=== PATIENT | female | born 1950 | race Caucasian/White ===

== ENCOUNTER 2022-03-02 11:55 | Outpatient (CLI) | payer MEDICARE, BC, SELFPAY ==
--- OUTSIDE RECORDS SUMMARY | 2022-03-02 07:31 | XMS_ITS | Clinical Summary ---
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 Pulse 58 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 Temperature - - Respiratory Rate - - Oxygen Saturation 95% 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 Inhaled Oxygen Concentration - - Weight - - Height - - Body Mass Index - - Plan of Treatment Health Maintenance Due Date Last Done Comments Tdap 1959 Depression screening for age 12+ 1960 BMI (ht and wt on same day) for age 1003/28/1966 18+ Hepatitis C screening for age 18-79 1966 Tetanus booster 1968 Colonoscopy through age 75 1993 Lipids for age 45-75 1993 Mammogram for age 45-75 1993 Zoster (shingles) series for age 50+ 1998 (1 of 2) DEXA/DXA scan for age 65+ 2013 Medicare Wellness for age 65+ 2013 Pneumococcal series for age 65+ (1 - 2013 PCV) COVID-19 vaccine series (4 - Booster 08/30/2021 05/02/2021, 08/04/2020, for Moderna series) 07/07/2020 Influenza for age 65+ 02/12/2022 Results Not on filefrom Last 3 Months Insurance Payer Benefit Plan / Subscriber ID Effective Dates Phone Addre ss Type Group [employer]UE [employer] [employer] [id number] 2016-Present [address] [address] [place], [place] [id number] Care Teams Wholesale Account Executive Relationship Specialty Start Date End Date Hailey Breen MD PCP - General Internal Medicine 04/13/18
[2022-03-02 10:18] LABS: Cholesterol* 181 mg/dL (90-199)
[2022-03-02 10:19] LABS: HDL Cholesterol* 50 mg/dL (>=50); LDL Cholesterol Calculated 105 mg/dL (<100); Triglycerides* 129 mg/dL (40-149)
[2022-03-05 10:16] LABS: Chloride* 104 mmol/L (96-114); Potassium* 4.4 mmol/L (3.6-5.1); Sodium* 139 mmol/L (135-149)
[2022-03-05 10:18] LABS: Creatinine* 0.7 mg/dL (0.5-1.5); Estimated Glomerular Filt Rate 91 ml/min
[2022-03-05 10:19] LABS: Blood Urea Nitrogen* 18 mg/dL (7-30); Calcium* 9.9 mg/dL (8.4-10.6); Carbon Dioxide* 29 mmol/L (20-32); Glucose* 104 mg/dL (60-115)
== END 2022-03-02 11:56 | disposition home or self-care (01) ==
PROVIDERS: PCP Internal Medicine; Visit Provider Internal Medicine
DX: E78.5 Hyperlipidemia, unspecified (principal); I10 Essential (primary) hypertension
CPT/HCPCS: 80048; 80061

== ENCOUNTER 2022-04-08 15:15 | Outpatient (RCR) | payer MEDICARE, BC, SELFPAY ==
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
== END 2022-06-10 16:51 | disposition home or self-care (01) ==
PROVIDERS: PCP Internal Medicine; Visit Provider Internal Medicine
DX: M25.562 Pain in left knee (principal); Z51.89 Encounter for other specified aftercare
CPT/HCPCS: 97110; 97140; 97161

== ENCOUNTER 2022-09-16 06:10 | Day surgery (SDC) | payer MEDICARE, BC, SELFPAY ==
--- NOTE | 2022-09-16 06:19 | SUR.PREOP ---
Patient provided home covid negative results to RN.
--- NOTE | 2022-09-16 06:20 | SUR.PREOP ---
The eye drops brought by the patient (Ketorolac and Prednisolone) are examined and I have determined they are labeled by the patient's pharmacy for this patient as prescribed by the surgeon. The bottles are intact, recently obtained and appear to be correct.
[2022-09-16] MEDS: TETRACAINE 0.5% OPHTH 1 DROP EYE-LEFT ×2 (06:40→06:50)
[2022-09-16] MEDS: KETOROLAC OPHTH 0.5% 1 DROP EYE-LEFT ×2 (06:46→06:56)
[2022-09-16 06:48] VITALS: BMI 24.7
[2022-09-16] MEDS: SODIUM CHLORIDE 0.9 % (FLUSH) 10 ML SYRINGE IVF (07:00)
[2022-09-16 07:05] VITALS: BP 158/70; PULSE 54; RESP 16; TEMP 36.9; O2SAT 98
[2022-09-16] MEDS: TETRACAINE 0.5% OPHTH 2 DROP EYE-LEFT (07:12)
[2022-09-16] MEDS: BALANCED SALT IRRIG SOLN 15 ML EYE-LEFT (07:18)
--- NOTE | 2022-09-16 07:20 | W.ANESCHARGE ---
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
[2022-09-16 07:43] VITALS: BP 144/77; PULSE 55; RESP 16; TEMP 36.3; O2SAT 95
--- NOTE | 2022-09-16 09:30 | P.OPTPRC_ITS ---
Procedure Note Date of procedure: 09/16/22 Will [facility] bill your pro fee for this procedure?: Yes Procedure Description: SURGEON: Diane Hylton MD PREOPERATIVE DIAGNOSIS: Nuclear sclerotic cataract, left eye. POSTOPERATIVE DIAGNOSIS: Nuclear sclerotic cataract, left eye. NAME OF OPERATION: Phacoemulsification of cataract with posterior chamber intraocular lens implantation in the left eye. ANESTHESIA: Topical. ESTIMATED BLOOD LOSS: Less than 2 cc. COMPLICATIONS: None. PATHOLOGY SPECIMEN: None. INDICATIONS: See consult note for details. The risks, benefits and alternatives of the procedure were explained to the patient, who elected to proceed and sign ed informed consent to do so. PROCEDURE: The patient was brought to the pre-holding area where the left eye was identified as the operative eye. I placed my initials above this eye. The patient received eye drops consisting of 0.5% tetracaine, 1% tropicamide, 10% phenylephrine, and 0.5% ketorolac. The patient was then brought to the operating room where the left eye was again identified as the operative eye. The eye was prepped with Betadine and draped in the usual sterile ophthalmic fashion. A #15 super-sharp blade was used to create a paracentesis site. 1% non-preserved intracameral lidocaine was injected into the anterior chamber. Endocoat was injected into the anterior chamber. A 2.4 mm keratome was used to create a three-plane self-sealing incision 1 mm anterior to the temporal limbus. A cystotome was used to create an anterior capsular leaflet. The Utrata forceps were used to extend this to form a continuous curvilinear capsulorrhexis. Hydrodissection was performed. The cataract was removed with phacoemulsification using the eivamz-wyg-pmhzogc technique. The irrigation and aspiration tip was used to remove the remaining cortex. Healon was injected into the capsular bag. An SABINE ZCB00 intraocular lens of 22.0 diopters was injected into the capsular bag. The irrigation and aspiration tip was used to remove the remaining viscoelastic. Balanced salt solution on a cannula was used to hydrate the wound, and the wound was found to be watertight. The pupil was noted to be round. DISPOSITION: The patient was taken to the recovery room and discharged to home in stable condition. The patient was instructed to call me or go to the emergency department with any sudden change, including dramatic loss of vision, severe pain in the eye or eyebrow region, nausea, or vomiting. The patient will follow up in the clinic tomorrow morning.
== END 2022-09-16 08:19 | disposition home or self-care (01) ==
PROVIDERS: PCP Internal Medicine; Visit Provider Ophthalmology
PROC: (CPT 66984; principal; 2022-09-16 06:15)
DX: H25.12 Age-related nuclear cataract, left eye (principal)
CPT/HCPCS: 66984; 00142; 99100; A9270; J2250; J3010; V2632

== ENCOUNTER 2022-09-30 06:04 | Day surgery (SDC) | payer MEDICARE, BC, SELFPAY ==
[2022-09-30] MEDS: TETRACAINE 0.5% OPHTH 1 DROP EYE-RIGHT ×2 (06:15→06:20)
[2022-09-30] MEDS: KETOROLAC OPHTH 0.5% 1 DROP EYE-RIGHT ×2 (06:15→06:20)
[2022-09-30 06:17] VITALS: BMI 24.7
[2022-09-30 06:27] VITALS: BP 138/64; PULSE 49; RESP 16; TEMP 36.3; O2SAT 98
[2022-09-30] MEDS: SODIUM CHLORIDE 0.9 % (FLUSH) 10 ML SYRINGE IVF (06:30)
--- NOTE | 2022-09-30 06:43 | SUR.PREOP ---
HOME COVID TEST NEGATIVE
[2022-09-30] MEDS: TETRACAINE 0.5% OPHTH 2 DROP EYE-RIGHT (07:15)
[2022-09-30] MEDS: BALANCED SALT IRRIG SOLN 15 ML EYE-RIGHT (07:20)
--- NOTE | 2022-09-30 07:29 | W.ANESCHARGE ---
Anesthesia Charges Start Date/Time Anesthesia Start Date: 09/30/22 Anesthesia Start Time: 07:14 Stop Date/Time Anesthesia Stop Date: 09/30/22 Anesthesia Stop Time: 07:47 Summary Extremes of Age - Over 70 or under 1: MDA
--- NOTE | 2022-09-30 07:35 | W.ANESCHARGE ---
Anesthesia Charges Start Date/Time Anesthesia Start Date: 09/30/22 Anesthesia Start Time: 07:14 Stop Date/Time Anesthesia Stop Date: 09/30/22 Anesthesia Stop Time: 07:47
[2022-09-30 07:52] VITALS: BP 142/61; PULSE 53; RESP 18; TEMP 36.6; O2SAT 98
--- NOTE | 2022-09-30 09:30 | P.OPTPRC_ITS ---
Procedure Note Date of procedure: 09/30/22 Will [facility] bill your pro fee for this procedure?: Yes Procedure Description: SURGEON: Diane Hylton MD PREOPERATIVE DIAGNOSIS: Nuclear sclerotic cataract, right eye. POSTOPERATIVE DIAGNOSIS: Nuclear sclerotic cataract, right eye. NAME OF OPERATION: Phacoemulsification of cataract with posterior chamber intraocular lens implantation in the right eye. ANESTHESIA: Topical. ESTIMATED BLOOD LOSS: Less than 2 cc. COMPLICATIONS: None. PATHOLOGY SPECIMEN: None. INDICATIONS: See consult note for details. The risks, benefits and alternatives of the procedure were explained to the patient, who elected to proceed and s igned informed consent to do so. PROCEDURE: The patient was brought to the pre-holding area where the right eye was identified as the operative eye. I placed my initials above this eye. The patient received eye drops consisting of 0.5% tetracaine, 1% tropicamide, 10% phenylephrine, and 0.5% ketorolac. The patient was then brought to the operating room where the right eye was again identified as the operative eye. The eye was prepped with Betadine and draped in the usual sterile ophthalmic fashion. A #15 super-sharp blade was used to create a paracentesis site. 1% non-preserved intracameral lidocaine was injected into the anterior chamber. Endocoat was injected into the anterior chamber. A 2.4 mm keratome was used to create a three-plane self-sealing incision 1 mm anterior to the temporal limbus. A cystotome was used to create an anterior capsular leaflet. The Utrata forceps were used to extend this to form a continuous curvilinear capsulorrhexis. Hydrodissection was performed. The cataract was removed with phacoemulsification using the txsxum-uhm-njsenvo technique. The irrigation and aspiration tip was used to remove the remaining cortex. Healon was injected into the capsular bag. An SABINE ZCB00 intraocular lens of 22.5 diopters was injected into the capsular bag. The irrigation and aspiration tip was used to remove the remaining viscoelastic. Balanced salt solution on a cannula was used to hydrate the wound, and the wound was found to be watertight. The pupil was noted to be round. A small 1 mm corneal abrasion was noted anterior to the paracentesis site at the beginning of the surgery. Therefore, Polysporin ophthalmic ointment was applied. DISPOSITION: The patient was taken to the recovery room and discharged to home in stable condition. The patient was informed of the corneal abrasion and instructed to use the ophthalmic ointment 3 more times today. The patient was instructed to call me or go to the emergency department with any sudden change, including dramatic loss of vision, severe pain in the eye or eyebrow region, nausea, or vomiting. The patient will follow up in the clinic tomorrow morning.
== END 2022-09-30 08:08 | disposition home or self-care (01) ==
PROVIDERS: PCP Internal Medicine; Visit Provider Ophthalmology
PROC: (CPT 66984; principal; 2022-09-30 06:15)
DX: H25.11 Age-related nuclear cataract, right eye (principal)
CPT/HCPCS: 66984; 00142; 99100; A9270; J2250; J3010; V2632

== ENCOUNTER 2023-04-29 07:48 | Outpatient (CLI) | payer MEDICARE, BC, SELFPAY | END 2023-04-29 07:49 | disposition home or self-care (01) | LOC: NFLDREF 04-30 11:24 | PROVIDERS: PCP Internal Medicine; Referring Provider Internal Medicine; Visit Provider Internal Medicine | DX: I10 Essential (primary) hypertension (principal); E78.5 Hyperlipidemia, unspecified | CPT/HCPCS: 80048; 80061 ==

== ENCOUNTER 2023-07-26 08:15 | Outpatient (RCR) | payer MEDICARE, BC, SELFPAY ==
--- NOTE | 2023-05-26 08:55 | PT.OPEX ---
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 SHE STATES THAT THE GREATEST CHALLENGE SHE HAS IS WHEN SHE FLIPS THE SHEET TO MAKE THE BED OR WHEN REACHING. SHE HAS TRIED IBUPROFEN AND TYLENOL WITH NO SIGNIFICANT CHANGE IN HER SYMPTOMS. SHE IS HOPING TO RETURN TO HER ACTIVE LIFE W/O SHOULDER PAIN. Date of Last Physician Visit 05/04/23 Current Work Status Retired Occupation RETIRED SOCIAL WORK Preferred Name [employer] Precautions Treatment Precautions/Contraindications DEMENTIA (MILD) Therapy Limitations/Systems Review Cognition Objective Other/Pertinent Objective CERVICAL ROM: WFL SHOULDER AROM Flexion: R 168 L 176 Abduction: R 162 L 152 Internal Rotation: T4 BILATERALLY External Rotation: R 88 L86 NECK/SHOULDER MMT: Shoulder shrug: R 5/5 L5 /5 Shoulder flexion: R 4-/5 L 4-/ 5 (PAIN LIMITED) Shoulder abduction: R 4-/5 L 4 -/5 (PAIN LIMITED) Shoulder External Rotation: R 4/5 L 4/5 Shoulder Internal Rotation: R 4/5 L 4/5 Elbow flexion: R 4/5 L 4/5 Elbow extension R 4/5 L 4/5 SPECIAL TEST Shoulder impingement- Ernandez Bonifacio Test: (+) Neer Test: (-) Malachi Test(subacromial): (-) Painful arc 60-120 scaption: ( +) Rotator cuff tendonitis Speeds test(biceps): (+) Yergasons test(biceps-arm at side elbow flexed) :(+) Empty can(Supra): (+) Lift off test (subscap): (+) Labral Tear/Instability /AC joint Paxiono sign(AC): (-) Anterior Apprehension: (-) Jobes relocation test: (-) Obriens test - (+) JOINT MOBILITY/PALPATION: HYPERMOBILITY NOTED TX: ULTRASOUND R/L PROXIMAL SHOULDER: 8 MIN 1MHz 1.6W/CM@ CONTINUOUS EA SHOULDER FLEX STRETCH AGAINST WALL 3 X 15 SEC SHOULDER PEC/ANTERIOR SHOULDER STRETCH STDG SCAP SQUEEZE X 15 HOLD 3 SEC STDG TB (RED) B S'ER X X15 STDG TB (RED) ROW X 15 HOLD 3 SEC Assessment Assessment/Impression PATIENT IS A [address] BUSTOS FOR BILATERAL BICEPS TENDINOSIS TO EVAL AND TX; PMHX INCLUDES BUT NOT LIMITED HTN, HLD, AND MILD DEMENTIA/MEMORY CHALLENGES. PATIENT LIVES WITH HER SPOUSE WHO ASSISTS HER WITH MEMORY CHALLENGES NEEDED. SHE IS INDEPENDENT WITH ADL'S, IADL'S AND CURRENTLY DRIVES TO GROCERY STORE, FAMILY AND OTHER ACTIVITIES SUCCESSFULLY. SHE REPORTS THAT HER DEMENTIA IS MORE EXCESSIVE FORGETFULNESS AND WORKS BETTER VISUALLY AND WITH HANDOUTS. SHE DEMONSTRATES BILATERAL MODERATE POINT TENDERNESS ABOUT THE BICIPITAL GROOVE BILATERALLY AND PEC MAJOR TENDON WITH A POSITIVE IMPINGEMENT AND PAINFUL ARC DESPITE HAVING FULL AROM. SHE DEMONSTRATES BILATERAL JOINT LAXITY/HYPERMOBILITY. SHE WOULD BENEFIT FROM THE USE OF ULTRASOUND, DTM AND IADTM FOR TREAT THE TENDINOSIS ALONG WITH RTC/SCAPULAR STRENGTHENING AND STABILIZATION TO RETURN TO HER PLOF. SHE IS PROVIDED A WRITTEN HEP ALONG WITH HER FIRST OF ULTRASOUND TREATMENT (REASSESS AT 4 TREATMENTS FOR EFFICACY). Primary Functional Limitations REACHING CARRYING LIFTING Plan of Care Rehabilitation Potential Good Physical Therapy Goals IN 6-10 VISITS: 1. DECREASE SHOULDER PAIN TO < /2-3/10 WITH DAILY ACTIVITIES AND WITH THE PROGRESSION OF HER HEP OVER THE NEXT 4 WEEKS. 2. DEMONSTRATE PAIN FREE AROM OVER THE NEXT 4-6 WEEKS DURING DAILY ACTIVITIES WITHOUT FLARE UPS OF SYMPTOMS. 3. PATIENT WILL VERBALIZED UNDERSTANDING OF POSTURING AND BODY MECHANICS IT RELATES TO DECREASING STRESS, IMPROVED SHOULDER MECHANICS, AND DECREASED SYMPTOMS. 4.PATIENT WILL DEMONSTRATES IMPROVED STRENGTH TO FACILITATE RETURN TO DAILY ACTIVITIES WITH LESS SYMPTOMS AND DECREASED OPPORTUNITIES FOR FLARE UP OF PAIN 5. PATIENT WILL BE INDEPENDENT WITH HER HEP WITHIN THE NEXT 6-8 WEEKS FOR PROGRESSION TWD ABOVE MENTION GOALS, CONTINUED MGMT OF SYMPTOMS, AND ONGOING SELF IMPROVEMENTS IN POSTURING/STRENGTH/ STABILIZATION. Coordination/Communication With Referral Source Treatment Plan/Direct Interventions Ice/Cold/Vasopneumatic,Manual Therapy,Neuromuscular Re-ed, Therapeutic Activities, Therapeutic Exercises Frequency/Duration 1-2X 6-8WKS Patient Will Be Discharged From Therapy Completion of LTG(s), Independent w/HEP Evaluation Billing Untimed Code Treatment Minutes 20 PT Eval No Charge No Complexity Moderate Certification Information Initial Certification Date 05/21/23 Ending Certification Date 08/18/23 Provider Signature Shows Agreement With POC & Medical Necessity Physician Signature & Date Requested Please Sign/Date Here Physician Comment/Change : Physician NPI Number #
== END 2023-08-24 10:11 | disposition home or self-care (01) ==
PROVIDERS: PCP Internal Medicine; Visit Provider Internal Medicine
DX: M67.813 Other specified disorders of tendon, right shoulder (principal); M67.814 Other specified disorders of tendon, left shoulder; M75.102 Unspecified rotator cuff tear or rupture of left shoulder, not specified as traumatic; M75.101 Unspecified rotator cuff tear or rupture of right shoulder, not specified as traumatic; M25.512 Pain in left shoulder; M25.511 Pain in right shoulder; Z51.89 Encounter for other specified aftercare
CPT/HCPCS: 97035; 97110; 97140; 97162

== ENCOUNTER 2024-07-04 10:38 | Outpatient (CLI) | payer MEDICARE, BC, SELFPAY | END 2024-07-04 10:39 | disposition home or self-care (01) | PROVIDERS: PCP Internal Medicine; Visit Provider Internal Medicine | DX: E78.5 Hyperlipidemia, unspecified (principal); I10 Essential (primary) hypertension | CPT/HCPCS: 80048; 80061 ==

== ENCOUNTER 2024-07-21 11:33 | Emergency (ER) | payer MEDICARE, BC, SELFPAY ==
[2024-07-21] VITALS (23 sets, daily range): BP systolic 122–158; BP diastolic 71–87; PULSE 60–69; RESP 16–18; TEMP 36.9; O2SAT 94–99; BMI 23.3
--- OUTSIDE RECORDS SUMMARY | 2024-07-21 11:35 | XMS_ITS | Clinical Summary ---
Author Organization [facility] Address [place], [place] [address] Care Team Providers Care Coring Machine Operator Name Role Phone Hailey Breen MD Primary Care Provider [phone]- [phone] Medications lisinopriL (PRINIVIL; ZESTRIL) 20 mg tablet Take 20 mg by mouth once daily. 01/03/2024 Active lovastatin (MEVACOR) 10 mg tablet Take 10 mg by mouth once daily. 01/03/2024 Active memantine (NAMENDA) 10 mg tablet Take 10 mg by mouth two times daily. 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 Gender Identity Not on file Sexual Orientation Not on file Obstetrics History Last Filed Vital Signs Vital Sign Reading Time Taken Comments Blood Pressure 162/92 02/16/2024 2:39 PM CDT Pulse 67 02/16/2024 2:39 PM CDT Temperature - - Respiratory Rate - - Oxygen Saturation 98% 02/16/2024 2:39 PM CDT Inhaled Oxygen Concentration - - Weight 61.7 kg (136 lb) 02/16/2024 2:39 PM CDT Height - - Body Mass Index - - Plan of Treatment Health Maintenance Due Date Last Done Comments Tdap 1959 Depression screening for age 12+ 1960 BMI (ht and wt on same day) for age 18+ 1966 Hepatitis C screening for ag e 18-79 1966 Tetanus booster 1968 Pneumococcal series for age 50+ (1 of 1 - PCV) 1998 Zoster (shingles) series for age 50+ (1 of 2) 1998 DEXA/DXA scan for age 65+ 2013 Medicare Wellness for age 65+ 2013 RSV vaccine for adults or (1 - 1-dose 75+ series) 2023 COVID-19 vaccine series ( season) 2024 05/12/2023, 01/18/2023, 03/30/2022, Additional history exists Influenza for age 65+ 02/13/2024 Insurance [employer]UE [employer]OSS [employer] [place] [address] Care Teams Coring Machine Operator Relationship Specialty Start Date End Date Hailey Breen MD [address] [place] [address] PCP - General Internal Medicine 02/16/24
--- NOTE | 2024-07-21 12:01 | CRLHL7_ITS ---
For Patients: As a result of the Cures Act, medical imaging exams and procedure reports are released immediately into your electronic medical record. You may view this report before your referring provider. If you have questions, please contact your health care provider. INDICATION: : Shortness of breath COMPARISON: None TECHNIQUE: Two view(s) of the chest FINDINGS: The cardiomediastinal silhouette and pulmonary vasculature are unremarkable. There is no focal airspace consolidation, pleural effusion, or pneumothorax. No displaced fractures. IMPRESSION: No acute cardiopulmonary process. Dictated by Noe Herrera MD @ 07/21/2024 12:22:56 PM (Electronically Signed)
--- OUTSIDE RECORDS SUMMARY | 2024-07-21 12:13 | XMS_ITS | Clinical Summary ---
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
[2024-07-21 12:30] LABS: Lactate* 0.9 mmol/L (0.5-1.9)
[2024-07-21 12:32] LABS: Basophils Absolute Auto 0.06 K/uL (0.00-0.30); Basophils Percent Auto 0.8 % (0.0-3.0); Eosinophils Absolute Auto 0.27 K/uL (0.00-0.50); Eosinophils Percent Auto 3.7 % (0.0-7.0); Hematocrit 43.3 % (33.0-51.0); Hemoglobin* 14.7 gm/dL (12.0-16.0); Lymphocytes Absolute Auto 2.13 K/uL (0.90-2.90); Lymphocytes Percent Auto 28.9 % (20-44); Mean Corpuscular HGB Conc 34 gm/dL (32-36); Mean Corpuscular Hemoglobin 31 pg (26-34); Mean Corpuscular Volume 90 fL (80-100); Monocytes Percent Auto 9.4 % (0.0-11.0); Neutrophils Absolute Auto 4.21 K/uL (1.7-7.0); Neutrophils Percent Auto 57.2 % (42.0-72.0); Platelet Count* 191 K/uL (140-440); RDW Coefficient of Variation % 11.8 % (11.5-15.5); Red Blood Count 4.82 m/uL (4.00-5.20); White Blood Count* 7.36 K/uL (4.50-11.00)
[2024-07-21 12:35] LABS: Slide Review Reflex No
[2024-07-21 12:48] LABS: Albumin* 4.4 g/dL (3.3-5.0); Chloride* 103 mmol/L (96-114)
[2024-07-21 12:49] LABS: Potassium* 4.8 mmol/L (3.6-5.1); Sodium* 137 mmol/L (135-149)
[2024-07-21 12:51] LABS: Alkaline Phosphatase* 92 U/L (40-150); Anion Gap 6 mEq/L (7-15); Aspartate Amino Transferase* 28 U/L (12-35); Bilirubin Direct* 0.2 mg/dL (0.0-0.5); Bilirubin Total* 0.3 mg/dL (0.1-1.5); Blood Urea Nitrogen* 28 mg/dL (7-30); Carbon Dioxide* 28 mmol/L (20-32); Creatinine* 0.9 mg/dL (0.5-1.5); Est. Creatinine Clearance* 41.33; Estimated Glomerular Filt Rate 66 ml/min; Total Protein* 7.3 g/dL (6.0-8.3)
[2024-07-21 12:52] LABS: Alanine Aminotransferase* 23 U/L (4-35); Calcium* 9.7 mg/dL (8.4-10.6); Glucose* 94 mg/dL (60-115); Lipase* 129 U/L (23-300); Magnesium* 2.1 mg/dL (1.5-2.6)
[2024-07-21 12:54] LABS: D Dimer Quantitative* 1.82 ug/ml (0.00-0.50)
[2024-07-21 12:55] LABS: C Reactive Protein* < 0.5 mg/dL (0.5-1.0)
--- NOTE | 2024-07-21 13:28 | CRLHL7_ITS ---
For Patients: As a result of the Century Cures Act, medical imaging exams and procedure reports are released immediately into your electronic medical record. You may view this report before your referring provider. If you have questions, please contact your health care provider. INDICATION: Elevated D-dimer. Chest pain, not otherwise described. COMPARISON: None available. TECHNIQUE: CT pulmonary angiography with 95 cc of Isovue 370 intravenous contrast. Please note that all CT scans at this facility use dose modulation, iterative reconstruction, and/or weight-based dosing when appropriate to reduce radiation dose to as low as reasonably achievable. FINDINGS: THORAX Pulmonary Arterial Vasculature: Opacification of the pulmonary arterial tree is adequate for assessment of pulmonary embolism. No intraluminal pulmonary arterial filling defect is identified to indicate a pulmonary embolism. Visualized Lower Neck: No lower cervical adenopathy. Lungs: No significant pulmonary findings. Nonspecific mosaic attenuation pattern, not considered clinically significant in the acute setting, without features of vascular oligemia to indicate small airways or obstructive vascular disease. Pleura: No pleural effusion. No pneumothorax. Mediastinum: Thoracic aorta and pulmonary trunk are normal in caliber. Cardiomegaly. Trachea and esophagus are normal in appearance. No mediastinal lymphadenopathy. ABDOMEN Visualized Upper Abdomen: No significant findings. Incidental 5 mm anterior right hepatic lobe cyst (5; 155). SKELETON AND BODY WALL No acute or significant incidental findings. IMPRESSION: No evidence of pulmonary embolism. Incidental findings described in the body of the report. Please note that all CT scans at this facility use dose modulation, iterative reconstruction, and/or weight-based dosing when appropriate to reduce radiation dose to as low as reasonably achievable. Dictated by Cas Sanders MD @ 07/21/2024 2:11:21 PM (Electronically Signed)
[2024-07-21 13:49] LABS: Troponin I* < 0.01 ng/mL (0.01-0.04)
--- NOTE | 2024-07-21 13:55 | ED_ITS ---
HPI - General Adult General Chief complaint: Chest Pain Stated complaint: Chest Pain/Back Pain Time Seen by Provider: 07/21/24 12:00 Source: patient Mode of arrival: ambulatory Limitations: no limitations History of Present Illness HPI narrative: 74-year-old female presenting today with chest and back pain. Patient states that chest pain woke her up in the middle of the night. Pain is located over the left anterior chest wall. This morning the pain migrated into her left upper back. Nothing seems to make the pain better or worse. She feels nauseated but has not vomited. No fevers or chills. She is not short of breath. She states that she has a mild cough. She denies any recent surgery or traveling. No changes in her appetite. Past medical history includes hypertension, hyperlipidemia, migraines. She has no history of coronary artery disease. No history of DVTs or PEs. She rated the pain at 2-3/10. She is currently asymptomatic. Related Data Home Medications ?Medication ?Instructions ?Recorded ?Confirmed memantine 10 mg tablet 10 mg PO BID 01/12/22 07/04/24 cetirizine 10 mg capsule (Zyrtec) 10 mg PO QDAY PRN 03/05/22 07/04/24 zolpidem 5 mg tablet (Ambien) 5 mg PO QHS PRN 05/04/23 07/04/24 Previous Rx's ?Medication ?Instructions ?Recorded sumatriptan succinate 50 mg tablet 50 mg PO .As Needed PRN migraine 03/05/22 headache #9 tabs lisinopril 20 mg tablet 20 mg PO DAILY #90 tabs 07/04/24 lovastatin 10 mg tablet 10 mg PO QDAY #90 tabs 07/04/24 Allergies Allergy/AdvReac Type Severity Reaction Status Date / Time Cat hair extract Allergy Mild Sneezing Uncoded 07/21/24 13:54 Cultivated oat pollen Allergy Mild Sneezing Uncoded 07/21/24 13:54 Dust Allergy Mild Sneezing Uncoded 07/21/24 13:54 LEVONORGESTREL-ETHINYL ESTRAD Allergy Unknown Uncoded 07/21/24 13:54 Review of Systems Status of ROS: Reports: 10 or more systems reviewed and unremarkable except as noted in History and below [facility] Medical History History of depression ?Z86.59 - Personal history of other mental and behavioral disorders (ICD-10) Surgical History History of cataract surgery ?Z98.49 - Cataract extraction status, unspecified eye (ICD-10) History of basal cell carcinoma of skin ?Z85.828 - Personal history of other malignant neoplasm of skin (ICD-10) History of vein stripping (08/14/11) ?Z98.890 - Other specified postprocedural states (ICD-10) History of tubal ligation (08/14/11) ?Z98.51 - Tubal ligation status (ICD-10) History of hysterectomy (05/30/19) ?Z90.710 - Acquired absence of both cervix and uterus (ICD-10) History of dilation and curettage (04/11/12) ?Z98.890 - Other specified postprocedural states (ICD-10) History of benign breast biopsy (04/11/12) ?Z98.890 - Other specified postprocedural states (ICD-10) Social History What is your current living situation?: I presently have a place to live Problems where you live: no known problems In the past 12 months, utilities in danger of being shut off: no In past 12 months, lack of transportation kept you from medical appts, meetings, work, or getting things needed for daily living: no In the past 12 mos, have been you worried that your food would run out before you had money to buy more?: never true In the past 12 mos, the food you bought just didn't last and you didn't have m oney to buy more?: never true Smoking Status: Former smoker Do you use any of these nicotine containing products: None How often do you have a drink containing alcohol: 2-3 times a week Alcohol type: beer and wine How many standard drinks containing alcohol do you have on a typical day: 1 or 2 How often do you have six or more drinks on one occasion: Never AUDIT-C Alcohol total score: 3 Non-prescribed substance use: denies use Caffeine: Yes How often does anyone, including family, friends and others, physically hurt you : never How often does anyone, including family, friends and others, insult or talk down to you: never How often does anyone, including family, friends and others, threaten you with harm: never How often does anyone, including family, friends and others, scream or curse at you: never Are you using contraception or practicing any form of control: No service: No Exam Narrative: Exam Narrative: Well-nourished well-developed patient in no acute distress. Alert and oriented. Answers questions appropriately. Mood and affect are appropriate. Thoughts are goal oriented and rational. No tangential or magical thinking noted. Patient speaks in full sentences without needing to catch her breath. HEENT: Normocephalic atraumatic. Pupils are equally round reactive to light. Extraocular muscles are intact. Conjunctivae are moist without any icterus noted. Moist mucous membranes. Posterior pharynx is normal. Neck is soft without any lymphadenopathy or thyromegaly. No masses are appreciated. Cardiovascular: Heart is regular rate and rhythm S1 and S2 are present without 1/6 systolic murmur. Lungs: Clear to auscultation bilaterally no wheezes rhonchi or rales are appreciated. Patient takes deep breaths without any discomfort. Abdomen: Soft and nontender nondistended with normal bowel sounds. Extremities: Bilateral lower extremities are without edema. Normal DP and PT pulses. Skin: Well perfused without any obvious rashes. Const: Vital Signs, click to edit/add: Vital Signs - 24 hr 07/21/24 11:44 07/21/24 12:01 07/21/24 12:04 Temperature 98.4 F Pulse Rate 65 Pulse Rate [Pulse Oximeter] 67 Respiratory Rate 18 16 Blood Pressure 139/72 Blood Pressure [Ri ght Upper Arm] 149/75 H Pulse Oximetry 97 96 98 Oxygen Delivery Me thod Room Air Room Air 07/21/24 12:05 07/21/24 12:22 07/21/24 12:30 Temperature Pulse Rate 64 64 67 Pulse Rate [Pulse Oximeter] Respiratory Rate Blood Pressure Blood Pressure [Ri ght Upper Arm] Pulse Oximetry 97 97 96 Oxygen Delivery Me thod 07/21/24 12:31 07/21/24 12:45 07/21/24 13:00 Temperature Pulse Rate 63 62 60 Pulse Rate [Pulse Oximeter] Respiratory Rate 16 Blood Pressure 150/74 H Blood Pressure [Ri ght Upper Arm] Pulse Oximetry 97 98 97 Oxygen Delivery Me thod Room Air 07/21/24 13:01 07/21/24 13:01 07/21/24 13:15 Temperature Pulse Rate 65 65 63 Pulse Rate [Pulse Oximeter] Respiratory Rate 16 Blood Pressure 148/76 H 148/76 H Blood Pressure [Ri ght Upper Arm] Pulse Oximetry 95 95 97 Oxygen Delivery Me thod Room Air 07/21/24 13:30 07/21/24 13:31 Temperature Pulse Rate 66 66 Pulse Rate [Pulse Oximeter] Respiratory Rate 16 Blood Pressure 158/87 H Blood Pressure [Ri ght Upper Arm] Pulse Oximetry 97 98 Oxygen Delivery Me thod Room Air Course Course ED Course: Patient already took aspirin at home. EKG, read by me, shows normal sinus rhythm, left axis deviation, pulse of 60. Point of care troponin is 0. CBC is entirely normal. Normal chemistries. Normal LFTs. Troponin I is less than 0.01. Negative CRP. Normal lipase. D-dimer elevated at 1.82. Chest x-ray, read by me, is unremarkable. Given her chest pain and elevated D-dimer we did proceed with a chest CT: This was unremarkable. Repeat troponin was 0, repeat EKG was unchanged. Vital Signs Vital signs: Initial Vital Signs Temperature 98.4 F 07/21/24 11:44 Temperature Source Temporal Artery Scan 07/21/24 11:44 Pulse Rate 67 07/21/24 11:44 Respiratory Rate 18 07/21/24 11:44 Blood Pressure 149/75 H 07/21/24 11:44 Blood Pressure Mean 99 07/21/24 11:44 Pulse Oximetry 97 07/21/24 11:44 Oxygen Delivery Method Room Air 07/21/24 11:44 Vital Signs Temperature 98.4 F 07/21/24 11:44 Pulse Rate 67 07/21/24 11:44 Respiratory Rate 18 07/21/24 11:44 Blood Pressure 149/75 H 07/21/24 11:44 Pulse Oximetry 97 07/21/24 11:44 Oxygen Delivery Method Room Air 07/21/24 11:44 Temperature 98.4 F 07/21/24 11:44 Pulse Rate 66 07/21/24 13:31 Respiratory Rate 16 07/21/24 13:31 Blood Pressure 158/87 H 07/21/24 13:31 Pulse Oximetry 98 07/21/24 13:31 Oxygen Delivery Method Room Air 07/21/24 13:31 Medical Decision Making MDM Narrative Medical decision making narrative: 74-year-old female with atypical chest pain. Ruled out acute coronary syndrome, pneumothorax, PE, pneumonia. No evidence of pericarditis. No lung pathology identified. Symptoms are not consistent with aortic dissection. Discussed symptomatic treatment with anti-inflammatories. If symptoms worsen return to the ER, otherwise recommend follow-up with primary care this week. Lab Data Lab results reviewed: Yes I reviewed the patient's lab results Labs: Lab Results 07/21/24 07/21/24 07/21/24 Range/Units 12:02 12:15 14:48 WBC 7.36 (4.50-11.00) K/uL RBC 4.82 (4.00-5.20) m/uL Hgb 14.7 (12.0-16.0) gm/dL Hct 43.3 (33.0-51.0) % MCV 90 (80-100) fL MCH 31 (26-34) pg MCHC 34 (32-36) gm/dL RDW Coeff of Yann 11.8 (11.5-15.5) % Plt Count 191 (140-440) K/uL Neut % (Auto) 57.2 (42.0-72.0) % Lymph % (Auto) 28.9 (20-44) % [place] % (Auto) 9.4 (0.0-11.0) % Eos % (Auto) 3.7 (0.0-7.0) % Baso % (Auto) 0.8 (0.0-3.0) % Neut # (Auto) 4.21 (1.7-7.0) K/uL Lymph # (Auto) 2.13 (0.90-2.90) K/uL [place] # (Auto) 0.70 (0.00-0.90) K/UL Eos # (Auto) 0.27 (0.00-0.50) K/uL Baso # (Auto) 0.06 (0.00-0.30) K/uL Abs Immat Gran (auto) 0.00 (0.00-0.30) K/uL Imm/Tot Granulo (auto) 0.0 % D-Dimer Quant (PE/DVT) 1.82 H (0.00-0.50) ug/ml Sodium 137 (135-149) mmol/L Potassium 4.8 (3.6-5.1) mmol/L Chloride 103 (96-114) mmol/L Carbon Dioxide 28 (20-32) mmol/L Anion Gap 6 L (7-15) mEq/L BUN 28 (7-30) mg/dL Creatinine 0.9 (0.5-1.5) mg/dL Estimated Creat Clear 41.33 Estimated GFR 66 ml/min Glucose 94 (60-115) mg/dL Lactate 0.9 (0.5-1.9) mmol/L Calcium 9.7 (8.4-10.6) mg/dL Magnesium 2.1 (1.5-2.6) mg/dL Total Bilirubin 0.3 (0.1-1.5) mg/dL Direct Bilirubin 0.2 (0.0-0.5) mg/dL AST 28 (12-35) U/L ALT 23 (4-35) U/L Alkaline Phosphatase 92 (40-150) U/L Troponin I < 0.01 L (0.01-0.04) ng/mL C-Reactive Protein < 0.5 L (0.5-1.0) mg/dL Total Protein 7.3 (6.0-8.3) g/dL Albumin 4.4 (3.3-5.0) g/dL Lipase 129 (23-300) U/L POC Troponin I 0.00 L 0.00 L (0.01-0.04) ng/ml Imaging Data Chest x-ray: Attestation: I have reviewed the pertinent imaging results. Radiologist's impression: Two view(s) of the chest FINDINGS: The cardiomediastinal silhouette and pulmonary vasculature are unremarkable. There is no focal airspace consolidation, pleural effusion, or pneumothorax. No displaced fractures. IMPRESSION: No acute cardiopulmonary process. CT scan - chest: Attestation: I have reviewed the pertinent imaging results. Radiologist's impression: TECHNIQUE: CT pulmonary angiography with 95 cc of Isovue 370 intravenous contrast. Please note that all CT scans at this facility use dose modulation, iterative reconstruction, and/or weight-based dosing when appropriate to reduce radiation dose to as low as reasonably achievable. FINDINGS: THORAX Pulmonary Arterial Vasculature: Opacification of the pulmonary arterial tree is adequate for assessment of pulmonary embolism. No intraluminal pulmonary arterial filling defect is identified to indicate a pulmonary embolism. Visualized Lower Neck: No lower cervical adenopathy. Lungs: No significant pulmonary findings. Nonspecific mosaic attenuation pattern, not considered clinically significant in the acute setting, without features of vascular oligemia to indicate small airways or obstructive vascular disease. Pleura: No pleural effusion. No pneumothorax. Mediastinum: Thoracic aorta and pulmonary trunk are normal in caliber. Cardiomegaly. Trachea and esophagus are normal in appearance. No mediastinal lymphadenopathy. ABDOMEN Visualized Upper Abdomen: No significant findings. Incidental 5 mm anterior right hepatic lobe cyst (5; 155). SKELETON AND BODY WALL No acute or significant incidental findings. IMPRESSION: No evidence of pulmonary embolism. Incidental findings described in the body of the report. ECG Data Attestation: I personally reviewed and interpreted this ECG as follows: Discharge Plan Discharge Clinical Impression: Atypical chest pain Patient Disposition: Home, Self-Care Condition: Stable Additional Instructions: Recommend you return to the emergency department if your pain gets worse. Recommend you follow-up with your primary care provider next week. Okay to use Tylenol for discomfort, heating pad to sore areas. Do not apply heat directly to skin or for more than 20 minutes at a time. Prescriptions: No Action memantine 10 mg tablet 10 mg PO BID zolpidem [Ambien] 5 mg tablet 5 mg PO QHS PRN lovastatin 10 mg tablet 10 mg PO QDAY Qty: 90 3RF lisinopril 20 mg tablet 20 mg PO DAILY Qty: 90 3RF Zyrtec 10 mg capsule 10 mg PO QDAY PRN sumatriptan succinate 50 mg tablet 50 mg PO .As Needed PRN (Reason: migraine headache) Qty: 9 2RF Rx Instructions: ONE TAB AT ONSET OF HEADACHE, MAY REPEAT Q2H PRN, MAX 200 MG/24 HRS Follow Up/Referrals: Hailey Breen MD [Primary Care Provider] - Stand Alone Forms: [employer] Info Instructions
== END 2024-07-21 15:41 | disposition home or self-care (01) ==
PROVIDERS: Emergency Provider Family Medicine; PCP Internal Medicine
DX: R07.9 Chest pain, unspecified (principal)
CPT/HCPCS: 36415; 71046; 71275; 80048; 80076; 83605; 83690; 83735; 84484; 85025; 85379; 86140; 93005; 94761; 99284; 99285; Q9967

== ENCOUNTER 2024-09-12 17:22 | Outpatient (CLI) | payer MEDICARE, BC, SELFPAY ==
--- NOTE | 2024-09-12 17:40 | CRLHL7_ITS ---
For Patients: As a result of the Century Cures Act, medical imaging exams and procedure reports are released immediately into your electronic medical record. You may view this report before your referring provider. If you have questions, please contact your health care provider. BILATERAL SCREENING MAMMOGRAM WITH COMPUTER-AIDED DETECTION AND TOMOSYNTHESIS TECHNIQUE: CC and MLO views were obtained. These mammographic images have been obtained using full-field digital technique. These mammographic images were interpreted with the benefit of computer-aided detection. Breast Tomosynthesis was used in this interpretation. COMPARISON FILM: 05/28/21, 08/19/18, 07/28/17. FINDINGS: There are scattered areas of fibroglandular density. IMPRESSION: There is no radiographic evidence for malignancy. ASSESSMENT: BI-RADS Category 2: Benign RECOMMENDATION: Routine screening mammogram in 1 year. A lay language report of this examination will be provided to the patient. Lefty Lucia M.D. Diagnostic Radiologist [email or web address] SP/Dictated by: Lefty Lucia MD @ 09/13/2024 12:09:00 PM (Electronically Signed)
== END 2024-09-12 17:23 | disposition home or self-care (01) ==
LOC: MAMMO 17:23
PROVIDERS: PCP Internal Medicine; Visit Provider Internal Medicine
DX: Z12.31 Encounter for screening mammogram for malignant neoplasm of breast (principal)
CPT/HCPCS: 77063; 77067

== ENCOUNTER 2025-04-04 09:15 | Outpatient (CLI) | payer MEDICARE, BC, SELFPAY | END 2025-04-04 09:16 | disposition home or self-care (01) | PROVIDERS: PCP Internal Medicine; Visit Provider Internal Medicine | DX: I10 Essential (primary) hypertension (principal) | CPT/HCPCS: 80053; 84443 ==